=== PATIENT | female | born 1980 | race American Indian/Alaskan Native ===

== ENCOUNTER 2016-08-15 22:55 | Emergency (ER) | payer SELFPAY ==
[2016-08-15 23:42] LABS: Basophils % (Auto) 0.4 % (0.0-1.8); Eosinophils % (Auto) 1.1 % (0.0-4.3); Hematocrit 39.3 % (30.3-42.9); Hemoglobin 12.7 gm/dl (10.1-14.3); Mean Corpuscular HGB Conc 32 % (30-34); Mean Corpuscular Hemoglobin 27 pg (28-32); Mean Corpuscular Volume 82 fl (79-97); Platelet Count 234 K/mm3 (140-440); White Blood Count 4.5 K/mm3 (4.5-11.0)
[2016-08-15 23:48] LABS: Bilirubin,Urine NEG (Negative); Blood,Urine NEG (Negative); Ketones,Urine NEG (Negative); Leukocyte Esterase,Urine SM (Negative); Mucus,Urine 1+ /HPF; Nitrite,Urine NEG (Negative); Protein,Urine <15 mg/dL mg/dL (Negative); Urobilinogen,Urine < 2.0 mg/dL (<2.0)
[2016-08-15 23:51] LABS: Alanine Aminotransferase 32 units/L (7-56); Albumin 4.1 g/dL (3.9-5); Albumin/Globulin Ratio 1.2 %; Alkaline Phosphatase 57 units/L (35-129); Anion Gap 15 mmol/L; BUN/Creatinine Ratio 17.14; Blood Urea Nitrogen 12 mg/dL (7-17); Calcium 9.3 mg/dL (8.4-10.2); Carbon Dioxide 27 mmol/L (22-30); Chloride 101.5 mmol/L (98-107); Glucose 84 mg/dL (65-100); Lipase 20 units/L (13-60); Potassium 3.9 mmol/L (3.6-5.0); Sodium 140 mmol/L (137-145); Total Protein 7.6 g/dL (6.3-8.2)
[2016-08-15] MEDS ORDERED: MORPHINE IV ONE (23:56)
[2016-08-15] MEDS ORDERED: NACL 0.9% 1000 ML 1,000 ML IV ONE (23:56)
[2016-08-15] MEDS ORDERED: ZOFRAN IV ONE (23:56)
--- NOTE | 2016-08-15 23:58 | Emergency Department Report ---
ED Abdominal Pain HPI - General Chief Complaint: Abdominal Pain Stated Complaint: GALL STONES,ABD PAIN,NAUSEA,BACK PAIN Time Seen by Provider: 08/15/16 23:55 Source: patient Mode of arrival: Ambulatory Limitations: No Limitations - History of Present Illness Initial Comments: Pt is a 36 yr old F with no PMhx who presents to the ED with RUQ abd pain, nausea, and vomiting. Pt reports she was seen at [place] yesterday and was diagnosed with gallstones, given toradol and promethazine and discharged home to follow up with the surgeon. Pt reports her pain has not improved. Otherwise no other complaints. Severity scale (0 -10): 10 - Related Data Home Medications Medication Instructions Recorded Confirmed Last Taken Phenergan TAB 25 mg PO Q6H PRN 08/15/16 08/15/16 Unknown amLODIPine 10 mg PO DAILY 08/15/16 08/15/16 Unknown traMADol 50 mg PO Q6H PRN 08/15/16 08/15/16 Unknown Previous Rx's Medication Instructions Recorded Last Taken Type Oxycodone HCl [oxyCODONE TAB] 10 mg PO Q6H PRN #15 tablet 08/16/16 Unknown Rx Allergies Allergy/AdvReac Type Severity Reaction Status Date / Time No Known Allergies Allergy Verified 09/27/15 19:30 ED Review of Systems ROS: Stated complaint: GALL STONES,ABD PAIN,NAUSEA,BACK PAIN Other details as noted in HPI Comment: All other systems reviewed and negative ED Past Medical Hx - Past Medical History Previous Medical History?: No Additional medical history: LUPUS - Surgical History Hx Appendectomy: Yes Additional Surgical History: TUBAL LIGATION, tonsilectomy, adenoidectomy - Social History Smoking Status: Never Smoker Substance Use Type: None - Medications Home Medications: Home Medications Medication Instructions Recorded Confirmed Last Taken Type Phenergan TAB 25 mg PO Q6H PRN 08/15/16 08/15/16 Unknown History amLODIPine 10 mg PO DAILY 08/15/16 08/15/16 Unknown History traMADol 50 mg PO Q6H PRN 08/15/16 08/15/16 Unknown History Oxycodone HCl [oxyCODONE TAB] 10 mg PO Q6H PRN #15 tablet 08/16/16 Unknown Rx ED Physical Exam - General Limitations: No Limitations General appearance: alert, in no apparent distress - Head Head exam: Present: atraumatic, normocephalic - Eye Eye exam: Present: normal appearance - ENT ENT exam: Present: mucous membranes moist - Neck Neck exam: Present: normal inspection - Respiratory Respiratory exam: Present: normal lung sounds bilaterally. Absent: respiratory distress - Cardiovascular Cardiovascular Exam: Present: regular rate, normal rhythm. Absent: systolic murmur, diastolic murmur, rubs, gallop - GI/Abdominal GI/Abdominal exam: Present: soft, tenderness (RUQ), normal bowel sounds. Absent : guarding, rebound, rigid - Extremities Exam Extremities exam: Present: normal inspection - Back Exam Back exam: Present: normal inspection - Neurological Exam Neurological exam: Present: alert, oriented X3 - Psychiatric Psychiatric exam: Present: normal affect, normal mood - Skin Skin exam: Present: warm, dry, intact, normal color. Absent: rash ED Course Vital Signs 08/15/16 22:59 Temperature 98.7 F Pulse Rate 81 Respiratory 16 Rate Blood Pressure 146/98 Blood Pressure 146/98 [Left] O2 Sat by Pulse 100 Oximetry ED Medical Decision Making - Lab Data Result diagrams: 08/15/16 23:15 08/15/16 23:15 - Radiology Data Radiology results: report reviewed RUQ US: FINDINGS: Multiple stones are identified within the gallbladder lumen. The wall thickness is 2 millimeters. The common bile duct measures 3 millimeters. The portion of the liver and right kidney imaged are normal. The pancreas is not well visualized.. IMPRESSION: Cholelithiasis. Normal common bile duct measures 3 millimeters. - Medical Decision Making Pt initially given morphine 4mg IVP, zofran 8mg IVP, 1L NS IVF Pt re- evaluated, patient still c/o pain, ordered dilaudid 1mg IVP and bentyl 20mg IM Pt re-eavlauted at 0500, patient reports pain is a 6/10 and has improved Case d/w Dr Sosa at 0520, given patient's normal labs, lack of fever, and only biliary colic, patient does not need emergent evaluation for surgery. Pt to be discharged with pain medications and a Rx for a HIDA scan. Critical care attestation.: If time is entered above; I have spent that time in minutes in the direct care of this critically ill patient, excluding procedure time. ED Disposition Clinical Impression: Biliary colic, Gallstones Disposition: TO HOME OR SELFCARE Is pt being admited?: No Condition: Stable Instructions: Biliary Colic (ED), Abdominal Pain (ED) Prescriptions: Oxycodone HCl [oxyCODONE TAB] 10 mg PO Q6H PRN #15 tablet PRN Reason: Pain Referrals: PRIMARY CARE, [Primary Care Provider] - 3-5 Days CEDRIC SOSA MD [Staff Physician] - 3-5 Days
--- NOTE | 2016-08-16 00:21 | Ultrasound Report ---
FINAL REPORT PROCEDURE: US ABDOMEN LIMITED TECHNIQUE: Real-time sonography was performed of the gallbladder with image documentation. CPT 91491 HISTORY: GALLSTONES COMPARISON: No prior studies are available for comparison. FINDINGS: Multiple stones are identified within the gallbladder lumen. The wall thickness is 2 millimeters. The common bile duct measures 3 millimeters. The portion of the liver and right kidney imaged are normal. The pancreas is not well visualized.. IMPRESSION: Cholelithiasis. Normal common bile duct measures 3 millimeters.
[2016-08-16] MEDS ORDERED: DILAUDID IV ONE (03:12)
[2016-08-16] MEDS ORDERED: BENTYL IM ONE (03:12)
[2016-08-16 05:50] VITALS: BP 128/77
== END 2016-08-16 05:40 | disposition home or self-care (01) ==
LOC: ED 22:55
DX: K80.50 Calculus of bile duct without cholangitis or cholecystitis without obstruction (principal); K80.80 Other cholelithiasis without obstruction; M32.9 Systemic lupus erythematosus, unspecified
CPT/HCPCS: 36415; 76705; 80053; 81001; 83690; 84703; 85025; 96361; 96372; 96374; 96375; 99284; J0500; J1170; J2270; J2405; J7030

== ENCOUNTER 2016-08-21 13:39 | Emergency (ER) | payer SELFPAY ==
[2016-08-21 14:41] LABS: Basophils % (Auto) 0.6 % (0.0-1.8); Eosinophils % (Auto) 1.6 % (0.0-4.3); Hematocrit 42.2 % (30.3-42.9); Hemoglobin 13.5 gm/dl (10.1-14.3); Mean Corpuscular HGB Conc 32 % (30-34); Mean Corpuscular Hemoglobin 26 pg (28-32); Mean Corpuscular Volume 82 fl (79-97); Platelet Count 250 K/mm3 (140-440); Red Blood Count 5.12 M/mm3 (3.65-5.03); Red Cell Distribution Width 15.3 % (13.2-15.2); White Blood Count 5.1 K/mm3 (4.5-11.0)
[2016-08-21 15:01] LABS: Alanine Aminotransferase 46 units/L (7-56); Albumin 4.5 g/dL (3.9-5); Albumin/Globulin Ratio 1.4 %; Alkaline Phosphatase 64 units/L (35-129); Anion Gap 16 mmol/L; BUN/Creatinine Ratio 14.28; Blood Urea Nitrogen 10 mg/dL (7-17); Calcium 9.2 mg/dL (8.4-10.2); Carbon Dioxide 25 mmol/L (22-30); Chloride 103.9 mmol/L (98-107); Glucose 81 mg/dL (65-100); Lipase 18 units/L (13-60); Potassium 3.8 mmol/L (3.6-5.0); Sodium 141 mmol/L (137-145); Total Protein 7.7 g/dL (6.3-8.2)
[2016-08-21 17:45] LABS: Bacteria,Urine 1+ /HPF (Negative); Bilirubin,Urine NEG (Negative); Blood,Urine NEG (Negative); Ketones,Urine NEG (Negative); Leukocyte Esterase,Urine LG (Negative); Mucus,Urine 3+ /HPF; Nitrite,Urine NEG (Negative); Urobilinogen,Urine < 2.0 mg/dL (<2.0)
[2016-08-22] MEDS ORDERED: DILAUDID IM ONE (06:41)
[2016-08-22] MEDS ORDERED: BENTYL IM ONE (06:41)
--- NOTE | 2016-08-22 06:48 | Emergency Department Report ---
ED Abdominal Pain HPI - General Chief Complaint: Abdominal Pain Stated Complaint: NAUSEA/DIZZY/BACK AND STOMACH PAIN/POSS GALLSTONE Time Seen by Provider: 08/22/16 06:20 Source: patient Mode of arrival: Ambulatory Limitations: No Limitations - History of Present Illness Initial Comments: 36-year-old female presents to the emergency department complaining of abdominal pain. Patient states that she was diagnosed with gallstones on 2016 at another hospital. She was told to follow up with her doctor, but her insurance does not kick in until September 16. She was seen at this hospital on August 15. She reports she was doing better, but was unable to get her prescription pain medication filled due to the pharmacy not having the medication. Patient states the pain recurred yesterday afternoon. Patient describes a sharp, burning pain in her right upper abdomen that radiates to her epigastric area. This pain is constant, and waxes and wanes in intensity. She reports eating makes the pain worse. She reports associated nausea, and vomiting. There has been no diarrhea or fever. There are no other complaints. MD Complaint: abdominal pain -: Gradual, days(s) (1) Location: RUQ Radiation: epigastric Migration to: no migration Severity: severe Severity scale (0 -10): 10 Quality: sharp, burning Consistency: constant Improves With: nothing Worsens With: eating Associated Symptoms: nausea, vomiting - Related Data Home Medications Medication Instructions Recorded Confirmed Last Taken Phenergan TAB 25 mg PO Q6H PRN 08/15/16 08/15/16 Unknown amLODIPine 10 mg PO DAILY 08/15/16 08/15/16 Unknown Previous Rx's Medication Instructions Recorded Last Taken Type oxyCODONE /ACETAMINOPHEN [Percocet 1 tab PO Q6HR PRN #30 tablet 08/22/16 Unknown Rx 5/325] Allergies Allergy/AdvReac Type Severity Reaction Status Date / Time No Known Allergies Allergy Verified 09/27/15 19:30 ED Review of Systems ROS: Stated complaint: NAUSEA/DIZZY/BACK AND STOMACH PAIN/POSS GALLSTONE Other details as noted in HPI Comment: All other systems reviewed and negative Gastrointestinal: abdominal pain, nausea, vomiting ED Past Medical Hx - Past Medical History Previous Medical History?: Yes Hx Hypertension: Yes Additional medical history: LUPUS - Surgical History Past Surgical History?: Yes Hx Appendectomy: Yes Additional Surgical History: TUBAL LIGATION, tonsilectomy, adenoidectomy - Family History Family history: no significant - Social History Smoking Status: Never Smoker Substance Use Type: None - Medications Home Medications: Home Medications Medication Instructions Recorded Confirmed Last Taken Type Phenergan TAB 25 mg PO Q6H PRN 08/15/16 08/15/16 Unknown History amLODIPine 10 mg PO DAILY 08/15/16 08/15/16 Unknown History oxyCODONE /ACETAMINOPHEN [Percocet 1 tab PO Q6HR PRN #30 tablet 08/22/16 Unknown Rx 5/325] ED Physical Exam - General Limitations: No Limitations General appearance: alert, in no apparent distress - Head Head exam: Present: atraumatic, normocephalic - Eye Eye exam: Present: normal appearance, PERRL, EOMI - ENT ENT exam: Present: normal exam, normal orophraynx, mucous membranes moist - Neck Neck exam: Present: normal inspection, full ROM. Absent: tenderness - Respiratory Respiratory exam: Present: normal lung sounds bilaterally. Absent: respiratory distress - Cardiovascular Cardiovascular Exam: Present: regular rate, normal rhythm, normal heart sounds - GI/Abdominal GI/Abdominal exam: Present: soft, tenderness (moderate right upper quadrant tenderness to palpation), guarding (voluntary), normal bowel sounds. Absent: distended, rebound - Extremities Exam Extremities exam: Present: normal inspection, full ROM. Absent: tenderness - Back Exam Back exam: Present: normal inspection, full ROM. Absent: tenderness - Neurological Exam Neurological exam: Present: alert, oriented X3. Absent: motor sensory deficit - Skin Skin exam: Present: warm, dry, intact ED Course Vital Signs 08/21/16 08/22/16 08/22/16 14:24 00:49 05:32 Temperature 98.6 F Pulse Rate 76 73 75 Respiratory 18 14 20 Rate Blood Pressure 152/99 160/109 Blood Pressure [Right] O2 Sat by Pulse 100 100 100 Oximetry 08/22/16 08/22/16 08/22/16 05:41 05:43 05:51 Temperature 98.8 F Pulse Rate 75 71 70 Respiratory 23 18 23 Rate Blood Pressure 129/90 137/89 Blood Pressure 124/90 [Right] O2 Sat by Pulse 99 100 98 Oximetry 08/22/16 08/22/16 06:00 06:11 Temperature Pulse Rate 82 74 Respiratory 14 16 Rate Blood Pressure 138/102 138/102 Blood Pressure [Right] O2 Sat by Pulse 100 98 Oximetry ED Medical Decision Making - Lab Data Result diagrams: 08/21/16 14:32 08/21/16 14:32 - Medical Decision Making Laboratory results reviewed and discussed with the patient. Patient is being given medication in the emergency department. She will be discharged home to follow up with her primary care physician as scheduled. - Differential Diagnosis abdominal pain, cholelithiasis, cholecystitis, PUD Critical care attestation.: If time is entered above; I have spent that time in minutes in the direct care of this critically ill patient, excluding procedure time. ED Disposition Clinical Impression: Biliary colic Disposition: [id number]-01 TO HOME OR SELFCARE Is pt being admited?: No Condition: Stable Instructions: Abdominal Pain (ED) Prescriptions: oxyCODONE /ACETAMINOPHEN [Percocet 5/325] 1 tab PO Q6HR PRN #30 tablet PRN Reason: Pain Referrals: PRIMARY CARE, [Primary Care Provider] - 3-5 Days Time of Disposition: 06:50
[2016-08-22] MEDS ORDERED: ZOFRAN ODT ONE (07:14)
[2016-08-22 07:28] VITALS: BP 124/87
[2016-08-22] MEDS ORDERED: ZOFRAN PO ONE (07:29)
== END 2016-08-22 07:30 | disposition home or self-care (01) ==
LOC: ED 13:39
DX: K80.50 Calculus of bile duct without cholangitis or cholecystitis without obstruction (principal); I10 Essential (primary) hypertension; M32.9 Systemic lupus erythematosus, unspecified
CPT/HCPCS: 36415; 80053; 81001; 81025; 83690; 85025; 96372; 99283; J0500; J1170; Q0162

== ENCOUNTER 2016-09-25 09:03 | Outpatient (CLI) | payer OTHER ==
[2016-09-25] MEDS ORDERED: KINEVAC IV ONE (10:08)
[2016-09-25] MEDS ORDERED: WATER FOR INJ (PF) IV ONE (10:09)
--- NOTE | 2016-09-25 11:32 | Nuclear Medicine Report ---
Gallbladder scan with ejection fraction: Biliary pain. Following injection of radionuclide imaging of the liver appears normal. The gallbladder is visualized at approximately 20 minutes with bowel at 30 minutes. Kinevac was injected according to protocol producing mild abdominal pain. There is a peak ejection fraction 46% at 3 minutes. Impression: Unremarkable exam.
== END 2016-09-25 09:04 | disposition home or self-care (01) ==
LOC: NM 09:03
PROVIDERS: ATTEND Surgery
DX: K80.50 Calculus of bile duct without cholangitis or cholecystitis without obstruction (principal)
CPT/HCPCS: 78226; A9537; J2805

== ENCOUNTER 2016-09-27 04:50 | Emergency (ER) | payer OTHER ==
[2016-09-27] MEDS ORDERED: PERCOCET 5/325 PO ONE (05:30)
[2016-09-27] MEDS ORDERED: PERCOCET 5/325 ONE (05:33)
[2016-09-27 05:53] LABS: Basophils % (Auto) 0.4 % (0.0-1.8); Eosinophils % (Auto) 1.7 % (0.0-4.3); Hematocrit 38.3 % (30.3-42.9); Mean Corpuscular HGB Conc 34 % (30-34); Mean Corpuscular Hemoglobin 27 pg (28-32); Mean Corpuscular Volume 80 fl (79-97); Platelet Count 239 K/mm3 (140-440); Red Blood Count 4.77 M/mm3 (3.65-5.03); Red Cell Distribution Width 14.7 % (13.2-15.2); White Blood Count 3.5 K/mm3 (4.5-11.0)
[2016-09-27 06:05] LABS: Alanine Aminotransferase 34 units/L (7-56); Albumin 4.1 g/dL (3.9-5); Albumin/Globulin Ratio 1.1 %; Alkaline Phosphatase 63 units/L (35-129); Anion Gap 15 mmol/L; BUN/Creatinine Ratio 14.28; Blood Urea Nitrogen 10 mg/dL (7-17); Carbon Dioxide 24 mmol/L (22-30); Chloride 103.8 mmol/L (98-107); Glucose 94 mg/dL (65-100); Lipase 28 units/L (13-60); Potassium 3.9 mmol/L (3.6-5.0); Sodium 139 mmol/L (137-145); Total Protein 7.7 g/dL (6.3-8.2)
[2016-09-27 07:36] LABS: Bacteria,Urine 1+ /HPF (Negative); Bilirubin,Urine NEG (Negative); Blood,Urine NEG (Negative); Ketones,Urine NEG (Negative); Leukocyte Esterase,Urine SM (Negative); Mucus,Urine 2+ /HPF; Nitrite,Urine NEG (Negative); Protein,Urine <15 mg/dL mg/dL (Negative); Urobilinogen,Urine < 2.0 mg/dL (<2.0)
[2016-09-27] MEDS ORDERED: NACL 0.9% 1000 ML 1,000 ML IV ONE (09:15)
[2016-09-27] MEDS ORDERED: ZOFRAN IV ONE (09:15)
[2016-09-27] MEDS ORDERED: MORPHINE IV ONE (09:15)
--- NOTE | 2016-09-27 09:20 | Emergency Department Report ---
ED Abdominal Pain HPI - General Chief Complaint: Abdominal Pain Stated Complaint: ABD PAIN, BACK PAIN,DIZZINESS Time Seen by Provider: 09/27/16 09:09 Source: patient Mode of arrival: Ambulatory Limitations: No Limitations - History of Present Illness Initial Comments: 36-year-old morbidly obese female with known history of gallstones presents with worsening abdominal pain over the last few days. Patient had a HIDA scan done on and does not know results. She denies fevers or chills. She has had some nausea and vomiting. She is tender epigastrium and right upper quadrant. She's also had some diarrhea. -: Gradual Location: RUQ, epigastric Radiation: none Migration to: no migration Severity scale (0 -10): 6 Quality: cramping Consistency: constant, colicky Improves With: nothing Worsens With: eating Associated Symptoms: nausea, vomiting, diarrhea. denies: fever, chills, constipation, dysuria - Related Data Home Medications Medication Instructions Recorded Confirmed Last Taken Phenergan TAB 25 mg PO Q6H PRN 08/15/16 08/15/16 Unknown amLODIPine 10 mg PO DAILY 08/15/16 08/15/16 Unknown Previous Rx's Medication Instructions Recorded Last Taken Type oxyCODONE /ACETAMINOPHEN [Percocet 1 tab PO Q6HR PRN #30 tablet 08/22/16 Unknown Rx 5/325] Allergies Allergy/AdvReac Type Severity Reaction Status Date / Time No Known Allergies Allergy Verified 09/27/15 19:30 ED Review of Systems ROS: Stated complaint: ABD PAIN, BACK PAIN,DIZZINESS Other details as noted in HPI Comment: All other systems reviewed and negative Constitutional: denies: chills, fever Eyes: denies: eye pain, eye discharge, vision change ENT: denies: ear pain, throat pain Respiratory: denies: cough, shortness of breath, wheezing Cardiovascular: denies: chest pain, palpitations Endocrine: no symptoms reported Gastrointestinal: denies: abdominal pain, nausea, diarrhea Genitourinary: denies: urgency, dysuria, discharge Musculoskeletal: denies: back pain, joint swelling, arthralgia Skin: denies: rash, lesions Neurological: denies: headache, weakness, paresthesias Psychiatric: denies: anxiety, depression Hematological/Lymphatic: denies: easy bleeding, easy bruising ED Past Medical Hx - Past Medical History Previous Medical History?: Yes Hx Hypertension: Yes Additional medical history: LUPUS - Surgical History Past Surgical History?: Yes Hx Appendectomy: Yes Additional Surgical History: TUBAL LIGATION, tonsilectomy, adenoidectomy - Family History Family history: no significant - Social History Smoking Status: Never Smoker Substance Use Type: None - Medications Home Medications: Home Medications Medication Instructions Recorded Confirmed Last Taken Type Phenergan TAB 25 mg PO Q6H PRN 08/15/16 08/15/16 Unknown History amLODIPine 10 mg PO DAILY 08/15/16 08/15/16 Unknown History oxyCODONE /ACETAMINOPHEN [Percocet 1 tab PO Q6HR PRN #30 tablet 08/22/16 Unknown Rx 5/325] ED Physical Exam - General Limitations: No Limitations General appearance: alert, in no apparent distress, obese - Head Head exam: Present: atraumatic, normocephalic - Eye Eye exam: Present: normal appearance. Absent: scleral icterus, conjunctival injection - ENT ENT exam: Present: mucous membranes moist - Neck Neck exam: Present: normal inspection - Respiratory Respiratory exam: Present: normal lung sounds bilaterally. Absent: respiratory distress, wheezes - Cardiovascular Cardiovascular Exam: Present: regular rate, normal rhythm. Absent: systolic murmur, diastolic murmur, rubs, gallop - GI/Abdominal GI/Abdominal exam: Present: soft, distended, tenderness (mild tenderness in the right upper quadrant and epigastrium), normal bowel sounds - Extremities Exam Extremities exam: Present: normal inspection - Back Exam Back exam: Present: normal inspection - Neurological Exam Neurological exam: Present: alert, oriented X3 - Psychiatric Psychiatric exam: Present: normal affect, normal mood - Skin Skin exam: Present: warm, dry, intact, normal color. Absent: rash ED Course Vital Signs 09/27/16 09/27/16 05:15 10:16 Temperature 98.6 F 98.9 F Pulse Rate 82 65 Respiratory 22 18 Rate Blood Pressure 161/106 139/81 [Right] O2 Sat by Pulse 100 99 Oximetry ED Medical Decision Making - Lab Data Result diagrams: 09/27/16 05:28 09/27/16 05:28 Laboratory Results - last 24 hr 09/27/16 09/27/16 09/27/16 05:28 05:28 05:28 WBC 3.5 L RBC 4.77 Hgb 13.0 Hct 38.3 MCV 80 MCH 27 L MCHC 34 RDW 14.7 Plt Count 239 Lymph % (Auto) 38.6 H [place] % (Auto) 9.9 H Eos % (Auto) 1.7 Baso % (Auto) 0.4 Lymph # 1.4 [place] # 0.4 Eos # 0.1 Baso # 0.0 Seg Neutrophils % 49.4 Seg Neutrophils # 1.7 L Sodium 139 Potassium 3.9 Chloride 103.8 Carbon Dioxide 24 Anion Gap 15 BUN 10 Creatinine 0.7 Estimated GFR > 60 BUN/Creatinine Ratio 14.28 Glucose 94 Calcium 9.0 Total Bilirubin 0.20 AST 23 ALT 34 Alkaline Phosphatase 63 Total Protein 7.7 Albumin 4.1 Albumin/Globulin Ratio 1.1 Lipase 28 HCG, Qual Negative Urine Color Urine Turbidity Urine pH Ur Specific [place] Urine Protein Urine Glucose (UA) Urine Ketones Urine Blood Urine Nitrite Urine Bilirubin Urine Urobilinogen Ur Leukocyte Esterase Urine WBC (Auto) Urine RBC (Auto) U Epithel Cells (Auto) Urine Bacteria (Auto) Urine Mucus 09/27/16 06:31 WBC RBC Hgb Hct MCV MCH MCHC RDW Plt Count Lymph % (Auto) [place] % (Auto) Eos % (Auto) Baso % (Auto) Lymph # [place] # Eos # Baso # Seg Neutrophils % Seg Neutrophils # Sodium Potassium Chloride Carbon Dioxide Anion Gap BUN Creatinine Estimated GFR BUN/Creatinine Ratio Glucose Calcium Total Bilirubin AST ALT Alkaline Phosphatase Total Protein Albumin Albumin/Globulin Ratio Lipase HCG, Qual Urine Color Yellow Urine Turbidity Slightly-cloudy Urine pH 6.0 Ur Specific [place] 1.020 Urine Protein <15 mg/dl Urine Glucose (UA) Neg Urine Ketones Neg Urine Blood Neg Urine Nitrite Neg Urine Bilirubin Neg Urine Urobilinogen < 2.0 Ur Leukocyte Esterase Sm Urine WBC (Auto) 2.0 Urine RBC (Auto) 1.0 U Epithel Cells (Auto) 18.0 H Urine Bacteria (Auto) 1+ Urine Mucus 2+ - Medical Decision Making 36-year-old female with known history of gallstones and biliary colic here with worsening pain. She's recently seen Dr. Sosa who ordered a HIDA scan. She does not have the results of that test. She's had worsening pain and nausea vomiting. Her LFTs are all normal and she is afebrile. This is likely biliary colic. Plan treat with pain and will reassess. Do not feel need to repeat ultrasound at this point. Reviewed HIDA scan and patient has a negative HIDA. At this point she has biliary colic. Plan to treat pain and anticipate discharge patient home once comfortable. Patient improved. Plan to discharge home. Do not plan to initiate additional prescriptions for narcotics. Portions of this chart were dictated with dictation software. There may be dictation errors contained within this note. Critical care attestation.: If time is entered above; I have spent that time in minutes in the direct care of this critically ill patient, excluding procedure time. ED Disposition Clinical Impression: Abdominal pain, Biliary colic Disposition: TO HOME OR SELFCARE Is pt being admited?: No Condition: Stable Instructions: Abdominal Pain (ED), Biliary Colic (ED) Referrals: PRIMARY CAREMD [Primary Care Provider] - 3-5 Days CEDRIC SOSA MD [Staff Physician] - 3-5 Days
[2016-09-27] MEDS ORDERED: DILAUDID ONE (11:13)
[2016-09-27] MEDS ORDERED: DILAUDID IV ONE (11:21)
[2016-09-27 12:42] VITALS: BP 121/77
== END 2016-09-27 12:41 | disposition home or self-care (01) ==
LOC: ED 04:50
DX: K80.50 Calculus of bile duct without cholangitis or cholecystitis without obstruction (principal); R10.13 Epigastric pain; I10 Essential (primary) hypertension
CPT/HCPCS: 36415; 80053; 81001; 83690; 84703; 85025; 96361; 96374; 96375; 99283; J1170; J2270; J2405; J7030

== ENCOUNTER 2016-10-01 10:07 | Day surgery (SDC) | payer OTHER ==
[~2016-10-01 10:07] MED LIST: NACL 0.9% 1000 ML 1,000 ML IV SCH; PEPCID PO NR; VERSED IV NR
[2016-10-01] MEDS ORDERED: NACL BACTERIOSTATIC INFILTRATI ONE (11:04)
--- NOTE | 2016-10-01 11:41 | Anesthesia Day of Surgery ---
Anesthesia Day of Surgery - Day of Surgery Patient Examined: Yes Patient H&P Reviewed: Yes Patient is NPO: Yes
--- NOTE | 2016-10-01 11:43 | Anesthesia Consultation ---
Anesthesia Consult and Med Hx Date of service: 10/01/16 - Airway Anesthetic Teeth Evaluation: Good ROM Head & Neck: Adequate Mental/Hyoid Distance: Adequate Mallampati Class: Class III Intubation Access Assessment: Probably Good - Pulmonary Exam CTA: Yes - Cardiac Exam Cardiac Exam: RRR - Pre-Operative Health Status ASA Pre-Surgery Classification: ASA3 Proposed Anesthetic Plan: General - Pulmonary Hx Smoking: No Hx Sleep Apnea: Yes (DX SLEEP APNEA CHILD,NO SLEEP STUDY ADULT) - Cardiovascular System Hx Hypertension: Yes (X 1 YR- TAKES MEDS IRREGULARLY) - Other Systems Hx Cancer: No - Additional Comments Anesthesia Medical History Comments: SLE
[2016-10-01] MEDS ORDERED: SUBLIMAZE ONE (11:55)
[2016-10-01] MEDS ORDERED: DIPRIVAN 10 MG/ML IV ONE (11:55)
[2016-10-01] MEDS ORDERED: LACTATED RINGERS 1,000 ML IV SCH (12:00)
[2016-10-01] MEDS ORDERED: MARCAINE 0.5% 30 ML INFILTRATI ONE (12:12)
[2016-10-01] MEDS ORDERED: XYLOCAINE MPF 2% ONE (12:28)
[2016-10-01] MEDS ORDERED: DECADRON ONE (12:59)
[2016-10-01] MEDS ORDERED: ZOFRAN IV PRN (13:00)
[2016-10-01] MEDS ORDERED: ANCEF/STERILE WATER 2 GM/20 ML IV NR (13:00)
[2016-10-01] MEDS ORDERED: ePHEDrine SULFATE ONE (13:12)
[2016-10-01] MEDS ORDERED: BREVIBLOC IV ONE (13:17)
[2016-10-01] MEDS ORDERED: ZOFRAN ONE (13:17)
[2016-10-01] MEDS ORDERED: NEOSTIGMINE ONE (13:22)
[2016-10-01] MEDS ORDERED: ROBINUL ONE ×2 (13:22→13:24)
[2016-10-01] MEDS ORDERED: TORADOL ONE (13:30)
[2016-10-01] MEDS ORDERED: MARCAINE 0.5% INFILTRATI ONE (13:31)
[2016-10-01] MEDS ORDERED: NACL 0.9% IR ONE ×2 (13:31)
[2016-10-01] MEDS ORDERED: NACL 0.9% 1000 ML 1,000 ML ONE (13:32)
[2016-10-01] MEDS ORDERED: DILAUDID ONE (13:32)
[2016-10-01] MEDS ORDERED: PERCOCET 5/325 PO PRN (13:46)
--- NOTE | 2016-10-01 13:46 | Discharge Summary ---
Short Stay Discharge Plan Activity: advance as tolerated Diet: low fat Wound: remove dressing Follow up with: PRIMARY CARE, [Primary Care Provider] - 7 Days
[2016-10-01] MEDS: DILAUDID IV PRN ×3 (13:53→14:17)
[2016-10-01] MEDS ORDERED: NORCO 5/325 PO PRN (14:29)
--- NOTE | 2016-10-01 14:32 | Post Anesthesia Evaluation ---
- Post Anesthesia Evaluation Patient Participated: Yes Airway Patent: Yes Stable Respiratory Function: Yes Nausea/Vomiting: No Temp > 96.8F: Yes Pain Manageable: Yes Adequeate Hydration: Yes Anesthesia Complications: No Block Receding Appropriately: Not Applicable Patient on Ventilator: No
[2016-10-01] MEDS ORDERED: ZEMURON IV ONE (14:37)
[2016-10-01 15:43] VITALS: BP 144/88
--- NOTE | 2016-10-01 21:05 | Operative Report ---
PREOPERATIVE DIAGNOSIS: Gallbladder disease with stone. POSTOPERATIVE DIAGNOSES: Gallbladder disease with stone, acute cholecystitis. ANESTHESIA: General. BLOOD LOSS: Minimal. FIRST BEATER: Dr. Pagan. ANESTHESIA: General. BLOOD LOSS: Very minimal as mentioned above. FINDINGS: The patient had a severely inflamed gallbladder which contained multiple gallstones. There was one stuck just at the level of the cystic duct. We were able to remove the whole gallbladder. DESCRIPTION OF PROCEDURE: With the patient in supine position, prepped and draped in usual fashion. I made a small incision in the right upper quadrant. With the Veress needle, I was able to introduce CO2 up to a pressure of 15 for which #5 trocar was inserted. With use of the camera, I was able to introduce 3 more trocars under local anesthesia, #5 in the infraumbilical area, #10 in the mid upper epigastrium to the right side and another #5 in the right mid abdomen. Once adhesions were seen between the gallbladder and the duodenum, these were lysed slowly all the way to the infundibulum, at which point a grasper was applied as well on the fundal area. Then, the cystic duct was identified as well the cystic artery. These were Endo clipped x 3 and transected and then the gallbladder was removed in toto in the usual fashion. Once we were very much satisfied, the gallbladder was removed via the EndoCatch in the usual fashion, irrigating the area with lots of irrigation fluids, then all the trocars were removed one by one closing the fascia with the use of 0 Vicryl [id number] and the skin with 4-0 Vicryl white or undyed. The patient was then transferred to the recovery room in good condition. JOB# [id number] SARA/SRIDHAR
--- NOTE | 2016-10-01 23:09 | Discharge Summary ---
FINAL DIAGNOSIS: Acute cholecystitis. HOSPITAL COURSE: This patient was seen in my office yesterday because of severe pain to the right upper quadrant. Prior to that, she was seen in [facility]. She had a HIDA scan that showed about 4-5% ejection fraction, but the gallbladder was edematous on this sonogram, so she came today for definitive surgical intervention where she underwent laparoscopic cholecystectomy. Postop, she was transferred to the recovery room in good condition. The gallbladder looked edematous and contained multiple stones. DIET: Low fat. DISCHARGE INSTRUCTIONS: To see me in the office at about 10 days. She was given prescription for [place] 5/325 to be taken 1 every 4 hours p.r.n. for pain. JOB# [id number] SARA/SRIDHAR
== END 2016-10-01 15:49 | disposition home or self-care (01) ==
LOC: OR 10:07
PROVIDERS: ATTEND Surgery
DX: K80.12 Calculus of gallbladder with acute and chronic cholecystitis without obstruction (principal); I10 Essential (primary) hypertension; Z79.899 Other long term (current) drug therapy
CPT/HCPCS: 47562; 81025; 88304; A4217; J0690; J1100; J1170; J1885; J2250; J2405; J2704; J2710; J3010; J7030

== ENCOUNTER 2017-05-29 00:47 | Emergency (ER) | payer OTHER ==
[2017-05-29 02:21] LABS: Basophils % (Auto) 0.3 % (0.0-1.8); Eosinophils % (Auto) 0.5 % (0.0-4.3); Hematocrit 41.1 % (30.3-42.9); Hemoglobin 13.9 gm/dl (10.1-14.3); Lymphocytes # (Auto) 1.5 K/mm3 (1.2-5.4); Lymphocytes % (Auto) 27.1 % (13.4-35.0); Mean Corpuscular HGB Conc 34 % (30-34); Mean Corpuscular Hemoglobin 27 pg (28-32); Mean Corpuscular Volume 80 fl (79-97); Monocytes # (Auto) 0.4 K/mm3 (0.0-0.8); Monocytes % (Auto) 7.1 % (0.0-7.3); Platelet Count 296 K/mm3 (140-440); Red Blood Count 5.17 M/mm3 (3.65-5.03)
[2017-05-29 02:58] LABS: Alanine Aminotransferase 41 units/L (7-56); Albumin 4.7 g/dL (3.9-5); BUN/Creatinine Ratio 9; Blood Urea Nitrogen 7 mg/dL (7-17); Calcium 9.7 mg/dL (8.4-10.2); Hemolysis Index 10
[2017-05-29 06:08] LABS: Bacteria,Urine 1+ /HPF (Negative); Bilirubin,Urine NEG (Negative); Blood,Urine NEG (Negative); Color,Urine Yellow (Yellow); Mucus,Urine 3+ /HPF; Urobilinogen,Urine < 2.0 mg/dL (<2.0)
[2017-05-29] MEDS ORDERED: ZOFRAN IV ONE ×2 (07:46→11:03)
[2017-05-29 08:58] LABS: HCG Qualitative,Urine Negative (Negative)
[2017-05-29] MEDS ORDERED: BENADRYL IV ONE (08:59)
[2017-05-29] MEDS ORDERED: DILAUDID IV ONE ×2 (08:59→11:02)
[2017-05-29] MEDS ORDERED: REGLAN IV ONE (08:59)
[2017-05-29] MEDS ORDERED: PEPCID IV ONE (09:00)
[2017-05-29] MEDS ORDERED: NACL 0.9% 1000 ML 1,000 ML IV ONE (09:01)
[2017-05-29] MEDS ORDERED: NACL ONE (09:09)
--- NOTE | 2017-05-29 09:58 | Cat Scan Report ---
CT ABDOMEN AND PELVIS WITH CONTRAST INDICATION: Epigastric pain, nausea, vomiting. Previous appendectomy, cholecystectomy. COMPARISON: None similar. FINDINGS: Abdomen and pelvis CT performed following intravenous administration of 100 cc of Omnipaque 300. LUNG BASES: Mild cardiomegaly. Slight bibasilar atelectasis or scarring. Nonspecific distal esophageal wall prominence/thickening, not excluded for gastroesophageal reflux and/or hiatal hernia, amongst others. ABDOMEN: Left hepatic lobe tip wraps around the spleen in the left upper quadrant. Otherwise unremarkable liver, spleen, pancreas, adrenals, aorta, IVC and kidneys. Cholecystectomy clips. Nonopacified GI tract evaluation limited, though grossly nonobstructive. No ascites or size significant adenopathy. PELVIS: Approximately 4.6 cm uterine fibroid on the left displaces the endometrial canal with fluid towards the right as on axial image 149, series 2. Few small pelvic phleboliths. Grossly unremarkable adnexa/ovaries, urinary bladder and the rectosigmoid. No free fluid or significant adenopathy. Unremarkable bones. CONCLUSION: No acute significant chest process with an approximately 4.6 cm uterine fibroid, cholecystectomy, prominent left hepatic lobe and mild cardiomegaly, amongst others, as detailed above. Please correlate. Thank you for the opportunity to participate in this patient's care.
--- NOTE | 2017-05-29 10:05 | Emergency Department Report ---
ED Abdominal Pain HPI - General Chief Complaint: Abdominal Pain Stated Complaint: ABD PAIN Time Seen by Provider: 05/29/17 08:42 Source: patient Mode of arrival: Ambulatory Limitations: No Limitations - History of Present Illness Initial Comments: 37-year-old female with a past medical history appears cholecystectomy, appendectomy, hypertension, and lupus presents to the hospital complaining of epigastric pain for 6 days. Pain is intermittent and it feels "like contractions". It was a palpation and vomiting. No alleviating factors. Pain is moderate to severe intensity. Positive associated nausea and vomiting. Denies hematochezia, hematemesis, melena, fever, diarrhea, or dysuria. Pt took Advil and Pepto-Bismol without relief. Severity scale (0 -10): 10 - Related Data Home Medications Medication Instructions Recorded Confirmed Last Taken amLODIPine 10 mg PO DAILY 08/15/16 10/01/16 09/03/16 Previous Rx's Medication Instructions Recorded Last Taken Type Phenergan TAB 25 mg PO Q6H PRN #30 09/27/16 09/30/16 Rx HYDROcodone/APAP 5-325 [[place] 1 each PO Q4HR PRN #24 tablet 10/01/16 Unknown Rx 5/325] Omeprazole Magnesium [PriLOSEC Otc] 20 mg PO QDAY #30 tablet. 05/29/17 Unknown Rx Promethazine [Phenergan TAB] 25 mg PO Q6HR PRN #30 tab 05/29/17 Unknown Rx oxyCODONE /ACETAMINOPHEN [Percocet 1 tab PO Q6HR PRN #20 tablet 05/29/17 Unknown Rx 5/325 mg] Allergies Allergy/AdvReac Type Severity Reaction Status Date / Time No Known Allergies Allergy Verified 09/27/15 19:30 ED Review of Systems ROS: Stated complaint: ABD PAIN Other details as noted in HPI Comment: All other systems reviewed and negative ED Past Medical Hx - Past Medical History Previous Medical History?: Yes Hx Hypertension: Yes (X 1 YR- TAKES MEDS IRREGULARLY) Additional medical history: LUPUS - Surgical History Past Surgical History?: Yes Hx Appendectomy: Yes Additional Surgical History: TUBAL LIGATION, tonsilectomy, adenoidectomy - Social History Smoking Status: Never Smoker Substance Use Type: None - Medications Home Medications: Home Medications Medication Instructions Recorded Confirmed Last Taken Type amLODIPine 10 mg PO DAILY 08/15/16 10/01/16 09/03/16 History Phenergan TAB 25 mg PO Q6H PRN #30 09/27/16 10/01/16 09/30/16 Rx HYDROcodone/APAP 5-325 [[place] 1 each PO Q4HR PRN #24 tablet 10/01/16 Unknown Rx 5/325] Omeprazole Magnesium [PriLOSEC Otc] 20 mg PO QDAY #30 tablet. 05/29/17 Unknown Rx Promethazine [Phenergan TAB] 25 mg PO Q6HR PRN #30 tab 05/29/17 Unknown Rx oxyCODONE /ACETAMINOPHEN [Percocet 1 tab PO Q6HR PRN #20 tablet 05/29/17 Unknown Rx 5/325 mg] ED Physical Exam - General Limitations: No Limitations - Other Other exam information: General: No limitations, patient is alert in no acute distress Head exam: Atraumatic, normocephalic Eyes exam: Normal appearance, pupils equal reactive to light, extraocular movements intact ENT: Moist mucous membrane, normal oropharynx Neck exam: Normal inspection, full range of motion, no meningismus nontender Respiratory exam: Clear to auscultation bilateral, no wheezes, rales, crackles Cardiovascular: Normal rate and rhythm, normal heart sounds Abdomen: Soft, nondistended, epigastric tenderness, with normal bowel sounds, no rebound, or guarding Extremity: Full range of motion normal inspection no deformity Back: Normal Inspection, full range of motion, no tenderness Neurologic: Alert, oriented x3, cranial nerves intact, no motor or sensory deficit Psychiatric: normal affect, normal mood Skin: Warm, dry, intact ED Course Vital Signs 05/29/17 05/29/17 05/29/17 01:48 07:24 07:30 Temperature 99.7 F H 99.8 F H Pulse Rate 77 65 Respiratory 16 Rate Blood Pressure 146/86 129/86 Blood Pressure 145/96 [Right] O2 Sat by Pulse 100 97 97 Oximetry 05/29/17 05/29/17 05/29/17 07:33 07:45 08:00 Temperature Pulse Rate Respiratory 16 Rate Blood Pressure 141/84 138/84 Blood Pressure [Right] O2 Sat by Pulse 97 98 96 Oximetry 05/29/17 05/29/17 05/29/17 08:15 08:30 08:45 Temperature Pulse Rate Respiratory Rate Blood Pressure 133/80 138/82 130/76 Blood Pressure [Right] O2 Sat by Pulse 99 97 98 Oximetry 05/29/17 05/29/17 05/29/17 09:00 09:17 10:00 Temperature Pulse Rate 66 Respiratory 16 20 Rate Blood Pressure 126/79 149/90 Blood Pressure [Right] O2 Sat by Pulse 97 97 Oximetry 05/29/17 05/29/17 05/29/17 10:16 10:30 10:46 Temperature Pulse Rate Respiratory Rate Blood Pressure 155/90 146/86 152/92 Blood Pressure [Right] O2 Sat by Pulse Oximetry - Reevaluation(s) Reevaluation #1: 05/29/17 11:01 pt continues to have pain and nausea despite zofran, reglan/benadryl, dialudid 0.5mg, and pepcid. additonal meds ordered Reevaluation #2: 05/29/17 13:22 nausea and pain improved with additional meds ED Medical Decision Making - Lab Data Result diagrams: 05/29/17 02:01 05/29/17 02:01 Lab Results 05/29/17 05/29/17 05/29/17 Range/Units 02:01 02:01 02:01 WBC 5.5 (4.5-11.0) K/mm3 RBC 5.17 H (3.65-5.03) M/mm3 Hgb 13.9 (10.1-14.3) gm/dl Hct 41.1 (30.3-42.9) % MCV 80 (79-97) fl MCH 27 L (28-32) pg MCHC 34 (30-34) % RDW 15.0 (13.2-15.2) % Plt Count 296 (140-440) K/mm3 Lymph % (Auto) 27.1 (13.4-35.0) % [place] % (Auto) 7.1 (0.0-7.3) % Eos % (Auto) 0.5 (0.0-4.3) % Baso % (Auto) 0.3 (0.0-1.8) % Lymph # 1.5 (1.2-5.4) K/mm3 [place] # 0.4 (0.0-0.8) K/mm3 Eos # 0.0 (0.0-0.4) K/mm3 Baso # 0.0 (0.0-0.1) K/mm3 Seg Neutrophils % 65.0 (40.0-70.0) % Seg Neutrophils # 3.5 (1.8-7.7) K/mm3 Sodium 139 (137-145) mmol/L Potassium 3.7 (3.6-5.0) mmol/L Chloride 95.7 L (98-107) mmol/L Carbon Dioxide 30 (22-30) mmol/L Anion Gap 17 mmol/L BUN 7 (7-17) mg/dL Creatinine 0.8 (0.7-1.2) mg/dL Estimated GFR > 60 ml/min BUN/Creatinine Ratio 9 % Glucose 101 H (65-100) mg/dL Calcium 9.7 (8.4-10.2) mg/dL Total Bilirubin 0.40 (0.1-1.2) mg/dL AST 26 (5-40) units/L ALT 41 (7-56) units/L Alkaline Phosphatase 72 (35-129) units/L Total Protein 7.8 (6.3-8.2) g/dL Albumin 4.7 (3.9-5) g/dL Albumin/Globulin Ratio 1.5 % Lipase 67 H (13-60) units/L Urine Color (Yellow) Urine Turbidity (Clear) Urine pH (5.0-7.0) Ur Specific [place] (1.003-1.030) Urine Protein (Negative) mg/dL Urine Glucose (UA) (Negative) mg/dL Urine Ketones (Negative) mg/dL Urine Blood (Negative) Urine Nitrite (Negative) Urine Bilirubin (Negative) Urine Urobilinogen (<2.0) mg/dL Ur Leukocyte Esterase (Negative) Urine WBC (Auto) (0.0-6.0) /HPF Urine RBC (Auto) (0.0-6.0) /HPF U Epithel Cells (Auto) (0-13.0) /HPF Urine Bacteria (Auto) (Negative) /HPF Urine Mucus /HPF Urine HCG, Qual (Negative) 05/29/17 05/29/17 Range/Units Unknown Unknown WBC (4.5-11.0) K/mm3 RBC (3.65-5.03) M/mm3 Hgb (10.1-14.3) gm/dl Hct (30.3-42.9) % MCV (79-97) fl MCH (28-32) pg MCHC (30-34) % RDW (13.2-15.2) % Plt Count (140-440) K/mm3 Lymph % (Auto) (13.4-35.0) % [place] % (Auto) (0.0-7.3) % Eos % (Auto) (0.0-4.3) % Baso % (Auto) (0.0-1.8) % Lymph # (1.2-5.4) K/mm3 [place] # (0.0-0.8) K/mm3 Eos # (0.0-0.4) K/mm3 Baso # (0.0-0.1) K/mm3 Seg Neutrophils % (40.0-70.0) % Seg Neutrophils # (1.8-7.7) K/mm3 Sodium (137-145) mmol/L Potassium (3.6-5.0) mmol/L Chloride (98-107) mmol/L Carbon Dioxide (22-30) mmol/L Anion Gap mmol/L BUN (7-17) mg/dL Creatinine (0.7-1.2) mg/dL Estimated GFR ml/min BUN/Creatinine Ratio % Glucose (65-100) mg/dL Calcium (8.4-10.2) mg/dL Total Bilirubin (0.1-1.2) mg/dL AST (5-40) units/L ALT (7-56) units/L Alkaline Phosphatase (35-129) units/L Total Protein (6.3-8.2) g/dL Albumin (3.9-5) g/dL Albumin/Globulin Ratio % Lipase (13-60) units/L Urine Color Yellow (Yellow) Urine Turbidity Clear (Clear) Urine pH 7.0 (5.0-7.0) Ur Specific [place] 1.027 (1.003-1.030) Urine Protein 30 mg/dl (Negative) mg/dL Urine Glucose (UA) Neg (Negative) mg/dL Urine Ketones Neg (Negative) mg/dL Urine Blood Neg (Negative) Urine Nitrite Neg (Negative) Urine Bilirubin Neg (Negative) Urine Urobilinogen < 2.0 (<2.0) mg/dL Ur Leukocyte Esterase Sm (Negative) Urine WBC (Auto) 6.0 (0.0-6.0) /HPF Urine RBC (Auto) 4.0 (0.0-6.0) /HPF U Epithel Cells (Auto) 11.0 (0-13.0) /HPF Urine Bacteria (Auto) 1+ (Negative) /HPF Urine Mucus 3+ /HPF Urine HCG, Qual Negative (Negative) - Radiology Data Radiology results: report reviewed ct a/p IV contrast LUNG BASES: Mild cardiomegaly. Slight bibasilar atelectasis or scarring. Nonspecific distal esophageal wall prominence/thickening, not excluded for gastroesophageal reflux and/or hiatal hernia, amongst others. ABDOMEN: Left hepatic lobe tip wraps around the spleen in the left upper quadrant. Otherwise unremarkable liver, spleen, pancreas, adrenals, aorta, IVC and kidneys. Cholecystectomy clips. Nonopacified GI tract evaluation limited, though grossly nonobstructive. No ascites or size significant adenopathy. PELVIS: Approximately 4.6 cm uterine fibroid on the left displaces the endometrial canal with fluid towards the right as on axial image 149, series 2. Few small pelvic phleboliths. Grossly unremarkable adnexa/ovaries, urinary bladder and the rectosigmoid. No free fluid or significant adenopathy. Unremarkable bones. CONCLUSION: No acute significant chest process with an approximately 4.6 cm uterine fibroid, cholecystectomy, prominent left hepatic lobe and mild cardiomegaly, amongst others, as detailed above. Please correlate. Thank you for the opportunity to participate in this patient's care. - Medical Decision Making Epigastric pain Labs unremarkable CT significant for distal esophageal thickening Incidental finding of uterine fibroid Nausea, pain medication, and PPI will be prescribed Patient be discharged home with outpatient follow-up with GI and PROFESSOR OF RELIGIOUS STUDIES - Differential Diagnosis gastritis, esophagitis, pancreatitis, hepatitis Critical Care Time: No Critical care attestation.: If time is entered above; I have spent that time in minutes in the direct care of this critically ill patient, excluding procedure time. ED Disposition Clinical Impression: Esophageal thickening, Uterine fibroid, Epigastric pain, Nausea and vomiting Disposition: TO HOME OR SELFCARE Is pt being admited?: No Does the pt Need Aspirin: No Condition: Stable Instructions: Gastritis (ED), Uterine Fibroids (ED) Additional Instructions: Take the medication as prescribed. Follow up with the GI doctor, primary care doctor, and PROFESSOR OF RELIGIOUS STUDIES doctor provided with the doctor of your choice. Take a copy of your reports to your doctor for follow-up. Return is symptoms worsen Prescriptions: Omeprazole Magnesium [PriLOSEC Otc] 20 mg PO QDAY #30 tablet. oxyCODONE /ACETAMINOPHEN [Percocet 5/325 mg] 1 tab PO Q6HR PRN #20 tablet PRN Reason: Pain Promethazine [Phenergan TAB] 25 mg PO Q6HR PRN #30 tab PRN Reason: Nausea Referrals: MANDY ROCK MD [Staff Physician] - 3-5 Days (PROFESSOR OF RELIGIOUS STUDIES ) JENNI MACIEL MD [Staff Physician] - 3-5 Days (GI) SEBASTIÁN RODRIGUEZ MD [Primary Care Provider] - 3-5 Days (primary care) [facility] [Provider Group] - 3-5 Days Forms: Work/School Release Form(ED) Time of Disposition: 13:27
[2017-05-29] MEDS ORDERED: PHENERGAN PR ONE (11:02)
[2017-05-29 15:13] VITALS: BP 132/78
== END 2017-05-29 15:12 | disposition home or self-care (01) ==
LOC: ED 00:47
DX: K22.2 Esophageal obstruction (principal); D25.9 Leiomyoma of uterus, unspecified; I10 Essential (primary) hypertension; M32.9 Systemic lupus erythematosus, unspecified; Z90.49 Acquired absence of other specified parts of digestive tract; Z98.51 Tubal ligation status; Z90.89 Acquired absence of other organs
CPT/HCPCS: 36415; 74177; 80053; 81001; 81025; 83690; 85025; 93005; 93010; 96361; 96374; 96375; 96376; 99284; J1170; J1200; J2405; J2765; J7030; Q9967